=== PATIENT | female | born 1950 | race Caucasian/White ===

== ENCOUNTER 2018-01-07 06:08 | Emergency (ER) | payer MEDICARE ==
[2018-01-07] MEDS ORDERED: Acetaminophen 500 MG TAB ONE (07:48)
--- NOTE | 2018-01-07 08:54 | RAD ---
3 VIEWS RIGHT HAND: Date: 01/07/18 INDICATION: Fall with right hand fracture. FINDINGS: There is a comminuted fracture involving the right ring finger metacarpal shaft. The distal fracture fragment is displaced slightly radial and dorsally one cortex width. There is a butterfly fragment se en on the ulnar aspect of the mid to proximal ring finger metacarpal shaft. There is some slight inte rnal rotation of the distal fracture fragment. There is a prominent area of periarticular soft tissue calcification seen along the ulnar aspect of the long finger MCP joint. There is scattered osteoarth rosis of the IP joints of the right hand. Right wrist fracture is better seen on the right wrist radi ographs. IMPRESSION: 1. Mildly displaced comminuted ring finger metacarpal shaft fracture with some mild internal rotatio n of the distal fracture fragment. Hand surgical consultation is likely necessary. 2. Soft tissue calcification adjacent to the third finger metacarpophalangeal joint can be seen with CPPD deposition disease, gout, or prior soft tissue injury. No active periarticular erosive change i s evident. There is scattered osteoarthrosis of the right hand. 3. Right wrist fracture. POS: [facility]
--- NOTE | 2018-01-07 09:02 | RAD ---
3 VIEWS RIGHT WRIST: Date: 01/07/18 INDICATION: Right wrist injury. FINDINGS: There is a nondisplaced interarticular, comminuted, dorsally impacted distal radius fracture. There i s an interarticular component extending between the lunate and scaphoid fossa of the distal radius me asuring 1.2 mm in its greatest articular gap. There is a comminuted fracture involving the fourth fin miki metacarpal. Soft tissue swelling surrounding the right wrist. IMPRESSION: 1. Minimally displaced interarticular distal radius fracture. 2. Fourth metacarpal shaft fracture. POS: [facility]
--- NOTE | 2018-01-07 09:12 | RAD ---
CHEST 2 VIEWS: Date: 01/07/18 HISTORY: Fall. Trauma. Pain. COMPARISON: None. FINDINGS: Atherosclerosis of aorta. Normal cardiac silhouette. Pulmonary vessels and hilum are normal. Costophr enic angles are clear. No masses or consolidation. No pneumothorax or osseous abnormalities. IMPRESSION: 1. Atherosclerosis. 2. No acute cardiopulmonary process. POS: [facility]
== END 2018-01-07 08:48 | disposition home or self-care (01) ==
LOC: ERS 06:08
DX: S62.324A Displaced fracture of shaft of fourth metacarpal bone, right hand, initial encounter for closed fracture (principal); S62.312A Displaced fracture of base of third metacarpal bone, right hand, initial encounter for closed fracture; S52.571A Other intraarticular fracture of lower end of right radius, initial encounter for closed fracture; R07.81 Pleurodynia; I10 Essential (primary) hypertension; J45.909 Unspecified asthma, uncomplicated; W18.2XXA Fall in (into) shower or empty bathtub, initial encounter
CPT/HCPCS: 26600; 71046